=== PATIENT | male | born 1960 | race Caucasian/White ===

== ENCOUNTER → 2018-10-13 | Outpatient (CLI) | payer BC ==
--- NOTE | 2018-10-13 22:23 | MR ---
EXAMINATION TYPE: MR ankle LT wo con, MR foot LT wo con DATE OF EXAM: 10/13/2018 COMPARISON: None. HISTORY: tendonitis bilateral with diffuse foot and ankle swelling per order. Pain for 5 weeks per pa tient. Standard multiplanar, multisequence MRI departmental protocol Multiplanar, multisequence images of the left ankle and foot were acquired. FINDINGS: Distal Achilles tendon is intact. Visualized plantar fascia shows perhaps mild surrounding fluid without discrete abnormal signal and mild edematous change in the adjacent calcaneus. Peroneus tendons are intact. Flexor tendons along the posterior medial aspect of the ankle are intact . Some focal fluid signal surrounds the FT axial image 33 at level of the distal tibial metaphysis. E xtensor tendons anteriorly are intact. The anterior tibiofibular and anterior talofibular ligaments are intact. Medial deltoid ligament is i ntact. Normal sinus tarsi fat is seen. Ankle mortise symmetry is preserved. Mild subcutaneous edema over med ial malleolus and anterior to the lateral malleolus is noted. Images of the foot show diffuse increased signal involving medial and middle cuneiform bones extendin g to involve the base of second metatarsal where there appears to be joint space narrowing and possib le some ossific fusion along the lateral aspect axial image 15 series 701. No Lisfranc joint separati on is present. There is additional osseous edema seen centered at first metatarsophalangeal joint with moderate join t effusion at this level. Alignment is satisfactory. Flexion in the toes is present. Mild subcutaneou s edema along the dorsal surface is noted. IMPRESSION: 1. Mild plantar fasciitis as detailed above. 2. Abnormal medial aspect midfoot osseous edema involving first and second toes may be related to alt ered positioning of foot or mechanics from pain during attempted walking. Correlate clinically. Addit ional inflammatory changes first metatarsophalangeal joint are felt present. Correlate clinically.
== END | disposition home or self-care (01) ==
LOC: RADMRIMAIN 20:43
PROVIDERS: ATTEND Podiatrist Foot & Ankle Surgery
DX: M72.2 Plantar fascial fibromatosis (principal); R60.0 Localized edema; M76.62 Achilles tendinitis, left leg; M76.61 Achilles tendinitis, right leg

== ENCOUNTER → 2018-10-15 | Outpatient (CLI) | payer BC ==
--- NOTE | 2018-10-15 22:57 | MR ---
EXAMINATION TYPE: MR ankle RT wo con, MR foot RT wo con DATE OF EXAM: 10/15/2018 COMPARISON: Opposite left foot and ankle MRI 2 days earlier. HISTORY: tendonitis bilateral with diffuse foot and ankle swelling per order. Pain for 5 weeks per pa tient. Standard multiplanar, multisequence MRI departmental protocol Multiplanar, multisequence images of the right ankle and foot were acquired. Diffusion weighted imagi ng was performed. FINDINGS: Distal Achilles tendon is intact. Plantar fascia is intact without abnormal signal or surro unding edema. The peroneus brevis and longus tendons are intact. The flexor tendons along posterior medial aspect o f the ankle are intact. Symphysis tendons anteriorly are intact. The anterior tibiofibular and the anterior talofibular ligaments are intact. Deltoid ligament is inta ct. Normal sinus tarsi fat is seen. Ankle mortise symmetry is preserved. Soft tissue swelling is noted. There is mild edematous change in the posterior aspect of the calcaneus confirmed on all imaging plan es seen best coronal image 31. Images of the right foot show flexion and second through fifth toes. There is slight hallux valgus po sitioning first metatarsophalangeal joint. There is mild edema overlying the medial aspect of the talus with increased T2 signal. There is addit ional more prominent T2 signal involving the medial cuneiform and base of first metatarsal. Some narr owing is felt at this level seen best on sagittal images. The Lisfranc joints are maintained. No ossi fic fragmentation is present. Visualized tendons show no suspicious edema. There is mild subcutaneous edema along the dorsal surfac e at the midfoot level. No suspicious focal fluid collection is noted. IMPRESSION: Areas of bone marrow edema identified medial talus, posterior calcaneus, and first toe Lisfranc joint could reflect altered walking mechanics related to pain patient is experiencing. No ligament or tend on tear clearly identified.
== END | disposition home or self-care (01) ==
LOC: RADMRIMAIN 18:05
PROVIDERS: ATTEND Podiatrist Foot & Ankle Surgery
DX: R60.0 Localized edema (principal); M72.2 Plantar fascial fibromatosis; M76.62 Achilles tendinitis, left leg; M76.61 Achilles tendinitis, right leg